=== PATIENT | male | born 1990 | race Caucasian/White ===

== ENCOUNTER 2019-12-06 14:58 | Emergency (ER) | payer OTHER ==
[2019-12-06] MEDS ORDERED: Lidocaine 2% 20 ML MDV SUBCUT ONE (15:01)
[2019-12-06] MEDS ORDERED: Lidocaine 2% 20 ML MDV ONE (15:06)
[2019-12-06] MEDS ORDERED: Diphtheria,Pertussis(Acell),Tetanus Vaccine 0.5 ML Syringe IM ONE (15:08)
--- NOTE | 2019-12-06 15:17 | EDM.PDOC ---
ED HPI GENERAL MEDICAL PROBLEM - General Chief Complaint: Trauma Stated Complaint: LOST FINGER ON RIGHT HAND Time Seen by Provider: 12/06/19 15:00 Source of Information: Reports: Patient, RN. Denies: Old Records History Limitations: Reports: Other (no old records). 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 Last tetanus was '14. Brought finger tip along. 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: Reports: Other (see below) (none) Right Finger-Ring Pain Score (Numeric/FACES): 6 - Related Data Allergies Allergy/AdvReac Type Severity Reaction Status Date / Time cyclobenzaprine Allergy Other Verified 12/06/19 15:08 [From Flexeril] Home Meds: Home Meds Buprenorphine HCl/Naloxone HCl [Suboxone 12 mg-3 mg Sl Film] 1 each SL BID 12/06/19 [History] Gabapentin [Neurontin] 400 mg PO QID 12/06/19 [History] Sulfa 0 mg PO DAILY 12/06/19 [History] Review of Systems - Review of Systems Review Of Systems: See Below Constitutional: Reports: No Symptoms Musculoskeletal: Reports: Hand Pain (R ring finger) Skin: Reports: Wound (amputated distal R 4th finger) Neurological: Reports: No Symptoms ED EXAM, GENERAL - Physical Exam Exam: See Below Exam Limited By: No Limitations General Appearance: Alert, WD/WN, No Apparent Distress Extremities: Other (R 4th finger tip amputated at DIP jt. Small portion of proximal nail intact. No active arterial bleeding. ). No: Normal Range of Motion, Non-Tender, Increased Warmth Neurological: Alert, Oriented, CN II-XII Intact, Normal Cognition, No Motor/Sensory Deficits Psychiatric: Normal Affect, Normal Mood Skin Exam: Warm, Dry, Intact, Normal Color, No Rash ED TRAUMA EXTREMITY PROCEDURES - Laceration/Wound Repair Right Distal Digit - 4th (Ring) Appearance: Other (complete amputation) Anesthetic Type: Digital Local Anesthesia - Lidocaine (Xylocaine): 2% Plain Local Anesthetic Volume: Other (10 ml) Skin Prep: Saline Saline Irrigation (cc's): 180 Exploration/Debridement/Repair: Wound Explored, Moderate Debridement (amputated distal portion was cleaned and the distal pad trimmed, shaped and defatted to form a cap to put over the exposed intact distal middle phalanx. ) Closed With: Sutures Suture Size: 5-0 # of Sutures: 11 Suture Type: Prolene, Interrupted, Simple Drain Placement: No Sterile Dressing Applied: Nurse Tetanus Status Addressed: Yes Complications: No Course - Vital Signs Last Recorded V/S: Last Vital Signs Temp 36.8 C 12/06/19 15:23 Pulse 73 12/06/19 15:23 Resp 20 12/06/19 15:23 BP 173/88 H 12/06/19 15:23 Pulse Ox 98 12/06/19 15:23 - Orders/Labs/Meds Orders: Active Orders 24 hr Category Date Time Status Vaccines to be Administered [RC] PER UNIT ROUTINE Care 12/06/19 15:08 Active Bacitracin [Bacitracin Oint 1 GM] Med 12/06/19 16:05 Once 2 dose TOP ONETIME ONE cephALEXin [Keflex] Med 12/06/19 16:05 Once 500 mg PO ONETIME ONE Meds: Medications Discontinued Medications Generic Name Dose Route Start Last Admin Trade Name Freq PRN Reason Stop Dose Admin Diphtheria/Tetanus/Acell Pertussis 0.5 ml 12/06/19 15:08 12/06/19 15:41 Boostrix IM 12/06/19 15:09 0.5 ml .ONCE ONE Administration Lidocaine HCl 20 ml 12/06/19 15:01 12/06/19 15:30 Xylocaine 2% SUBCUT 12/06/19 15:02 20 ml ONETIME ONE Administration Departure - Departure Time of Disposition: 16:20 Disposition: Home, Self-Care 01 Condition: Fair Clinical Impression: Partial traumatic amputation of right ring finger through phalanx Qualifiers: Encounter type: initial encounter Qualified Code(s): S68.624A - Partial traumatic transphalangeal amputation of right ring finger, initial encounter - Discharge Information *PRESCRIPTION DRUG MONITORING PROGRAM REVIEWED*: No *COPY OF PRESCRIPTION DRUG MONITORING REPORT IN PATIENT GRIFFIN: No Instructions: Living With an Amputation Referrals: PCP,None [Primary Care Provider] - Forms: ED Department Discharge, ED Return to Work/School Form Additional Instructions: Keep your injured finger elevated, clean and dry until Sunday. Take cephalexin e very 8 hrs. Take acetaminophen up to 1000 mg every 6 hrs and/or ibuprofen 600 mg every 6 hrs with food for pain relief. Follow up with Dr. Bro(orthopedic surgeon) on Sunday for recheck. Off work until cleared medically. Sepsis Event Note (ED) - Focused Exam Vital Signs: Vital Signs Temp Pulse Resp BP Pulse Ox 12/06/19 15:23 36.8 C 73 20 173/88 H 98 12/06/19 15:04 36.8 C 73 20 173/88 H 98 - My Orders Last 24 Hours: My Active Orders 12/06/19 15:08 Vaccines to be Administered [RC] PER UNIT ROUTINE 12/06/19 16:05 Bacitracin [Bacitracin Oint 1 GM] 2 dose TOP ONETIME ONE cephALEXin [Keflex] 500 mg PO ONETIME ONE - Assessment/Plan Last 24 Hours: My Active Orders 12/06/19 15:08 Vaccines to be Administered [RC] PER UNIT ROUTINE 12/06/19 16:05 Bacitracin [Bacitracin Oint 1 GM] 2 dose TOP ONETIME ONE cephALEXin [Keflex] 500 mg PO ONETIME ONE
[2019-12-06] MEDS ORDERED: Cephalexin 250 MG Cap PO ONE (16:05)
[2019-12-06] MEDS ORDERED: Bacitracin Oint 1 GM U/D Packet TOP ONE (16:05)
== END 2019-12-06 16:31 | disposition home or self-care (01) ==
LOC: JP.ED 14:58
DX: S68.624A Partial traumatic transphalangeal amputation of right ring finger, initial encounter (principal); Z23 Encounter for immunization; Z88.6 Allergy status to analgesic agent; W26.8XXA Contact with other sharp object(s), not elsewhere classified, initial encounter; Y99.0 Civilian activity done for income or pay
CPT/HCPCS: 12002; 90471; 90715; 99282; 99284; A9270; J2001